=== PATIENT | female | born 1995 ===

== ENCOUNTER 2018-10-15 20:15 | Emergency (ER) | payer BC ==
[2018-10-15 21:14] VITALS: BP 106/68
--- NOTE | 2018-10-15 21:31 | ED ---
Throat Pain/Nasal Congestion - HPI Summary HPI Summary: 23 yr old with sore throat, runny nose, coughing. Onset three days ago. She has daughter in day care. The patient denies fever, chills. Her symptoms are moderate. She has no other complaints. - History of Current Complaint Chief Complaint: UCRespiratory Time Seen by Provider: 10/15/18 21:17 - Allergies/Home Medications Allergies/Adverse Reactions: Allergies Allergy/AdvReac Type Severity Reaction Status Date / Time No Known Allergies Allergy Verified 10/15/18 21:06 Home Medications: Home Medications Copper (Iud) [Paragard IUD] 1 unit IU ONCE 10/15/18 [History Confirmed 10/15/18] PMH/Surg Hx/FS Hx/Imm Hx - Surgical History Surgery Procedure, Year, and Place: Infectious Disease History: No Infectious Disease History: Denies: Traveled Outside the [place] in Last 30 Days - Family History Known Family History: Positive: None - Social History Alcohol Use: Occasionally Substance Use Type: Reports: Other Substance Use Comment - Amount & Last Used: cbd vape Smoking Status (MU): Never Smoked Tobacco Review of Systems Constitutional: Negative Positive: Sore Throat, Nasal Discharge Positive: Cough All Other Systems Reviewed And Are Negative: Yes Physical Exam Triage Information Reviewed: Yes Vital Signs On Initial Exam: Initial Vitals Temp Pulse Resp BP Pulse Ox 98.2 F 87 18 106/68 100 10/15/18 21:09 10/15/18 21:09 10/15/18 21:09 10/15/18 21:09 10/15/18 21:09 Vital Signs Reviewed: Yes Appearance: Positive: Well-Appearing, No Pain Distress Skin: Positive: Warm, Skin Color Reflects Adequate Perfusion Head/Face: Positive: Normal Head/Face Inspection Eyes: Positive: EOMI ENT: Positive: Pharyngeal erythema, Nasal congestion, Nasal drainage, TMs normal Neck: Positive: Nontender Respiratory/Lung Sounds: Positive: Clear to Auscultation, Breath Sounds Present Cardiovascular: Positive: RRR. Negative: Murmur Abdomen Description: Negative: Distended Musculoskeletal: Positive: Strength/ROM Intact Neurological: Positive: Sensory/Motor Intact, Alert, Oriented to Person Place, Time, CN Intact II-III Psychiatric: Positive: Normal Diagnostics - Vital Signs Vital Signs Temp Pulse Resp BP Pulse Ox 10/15/18 21:09 98.2 F 87 18 106/68 100 - Laboratory Lab Results: Lab Results 10/15/18 Range/Units 21:20 Group A Strep Rapid Negative (Negative) Lab Statement: Any lab studies that have been ordered have been reviewed, and results considered in the medical decision making process. EENT Course/Dx - Course Course Of Treatment: 23 yr old with URI symptoms. Plan dc home. - Diagnoses Provider Diagnoses: Upper respiratory infection Discharge - Sign-Out/Discharge Documenting (check all that apply): Patient Departure All imaging exams completed and their final reports reviewed: No Studies - Discharge Plan Condition: Good Disposition: HOME Patient Education Materials: Upper Respiratory Infection (ED) Referrals: Andree Christianson MD [Primary Care Provider] - 3 Days - Billing Disposition and Condition Condition: GOOD Disposition: Home
== END 2018-10-15 21:35 | disposition home or self-care (01) ==
LOC: UCCORT 20:15
DX: J06.9 Acute upper respiratory infection, unspecified (principal)
CPT/HCPCS: 87651; 99211; G0463